=== PATIENT | male | born 1990 | race Caucasian/White ===

== ENCOUNTER 2018-10-20 13:57 | Emergency (ER) | payer BC ==
[2018-10-20 15:22] VITALS: BP 118/70
--- NOTE | 2018-10-20 16:15 | UC ---
Lower Extremity/Ankle HPI - HPI Summary HPI Summary: Patient is a 27 year old gentleman, who present today to the urgent care with left foot and ankle pain since last night. He reports that he slipped on ice and landed/rolled his left foot. He is able to bear weight but it's painful - History of Current Complaint Chief Complaint: UCLowerExtremity Stated Complaint: L FOOT INJURY Time Seen by Provider: 10/20/18 16:12 Hx Obtained From: Patient Pain Intensity: 6 - Allergies/Home Medications Allergies/Adverse Reactions: Allergies Allergy/AdvReac Type Severity Reaction Status Date / Time acetaminophen [From Percocet] Allergy See Comment Verified 10/20/18 15:22 oxycodone [From Percocet] Allergy See Comment Verified 10/20/18 15:22 Home Medications: Home Medications NK [No Home Medications Reported] 10/20/18 [History Confirmed 10/20/18] PMH/Surg Hx/FS Hx/Imm Hx - Additional Past Medical History Additional PMH: No significant past medical history Previously Healthy: Yes - Surgical History Surgical History: Yes Surgery Procedure, Year, and Place: orif of bilat lower jaw - Social History Alcohol Use: Occasionally Substance Use Type: None Smoking Status (MU): Never Smoked Tobacco Review of Systems All Other Systems Reviewed And Are Negative: Yes Constitutional: Positive: Negative Eyes: Positive: Negative ENT: Positive: Negative Respiratory: Positive: Negative Cardiovascular: Positive: Negative Gastrointestinal: Positive: Negative Genitourinary: Positive: Negative Motor: Positive: Negative Neurovascular: Positive: Negative Musculoskeletal: Positive: Arthralgia - Left ankle and foot, Edema - Left foot Neurological: Positive: Negative Psychological: Positive: Negative Is Patient Immunocompromised?: No Physical Exam - Summary Physical Exam Summary: Physical Exam: Const: Appears well. No signs of apparent distress present. Alert and oriented x 3. Musculo: Walks with an antalgic gait Head/Face: Atraumatic, normocephalic on inspection. Eyes: EOMI and PERRLA in both eyes. Conjunctivae clear. No discharge noted ENT: Hearing normal Respiratory: Respirations are unlabored. CVS: Regular rate and Rhythm, S1S2 normal , no murmurs identified. Extremities: Peripheral circulation is grossly normal. Pulses 2+ Abdomen : Soft non tender , nondistended , Bowel sounds present . No guarding , rebound tenderness or rigidity noted. Skin: No lesions or rash located on the upper extremities or on the lower extremities. Neuro: Cranial nerves II to XII intact, motor and sensory intact. DTR Intact bilaterally. Mood is normal. Affect is normal. Left Ankle/Feet examination: Left Ankle: Inspection/palpation: No bruising, swelling. There is tenderness to palpation at the ATFL. There is no significant tenderness at the malleoli. There is tenderness to palpation at the base of the fifth metatarsal. Ankle mortise appears intact. ROM: full AROM: Full dorsiflexion(20 deg), Full plantar flexion(50 deg) Strength: 5-/5 Special tests:Anterior drawer test is negative . Side to side test negative.Talar tilt test(inversion stress) and the eversion stress test negative. Negative Squeeze and External Rotation tests. Left Feet: Insp/Palp: Swelling and tenderness is noted at the mid foot area. There is tenderness to palpation at the Lisfranc joint. There is tenderness at the base of the fifth metatarsal. Strength: EHL 5/5 blaterally Skin: No scars, rashes, lesions or ecchymosis. 2+ posterior tibial and dorsalis pedis pulse bilaterally. Neuro: Sensation to light touch is intact in the lower extremities bilaterally. Coordination normal. Triage Information Reviewed: Yes Vital Signs: Initial Vital Signs Temp 98.3 F 10/20/18 15:16 Pulse 83 10/20/18 15:16 Resp 18 10/20/18 15:16 BP 118/70 10/20/18 15:16 Pulse Ox 99 10/20/18 15:16 Vital Signs Reviewed: Yes Diagnostics - Radiology No standard instances Radiology Interpretation Completed By: Radiologist - X-ray of the left ankle and left foot: Normal articular alignment and preserved joint spaces at the ankle and foot. No cortical disruption or suspicious trabecular irregularity to suggest fracture. Unremarkable soft tissue contours. IMPRESSION: #. Negative radiographic exam of the LEFT ankle and foot. Lower Extremity Course/Dx - Course Course Of Treatment: During the visit today, we obtained x-rays of the left ankle and foot which were negative for any fracture . We discussed the findings consistent with left lateral ankle and midfoot strain with possibility of a Lisfranc injury cannot be completely ruled out plan to keep him in the boot and follow up with orthopedics. - Differential Dx/Diagnosis Provider Diagnosis: Left ankle sprain, Sprain of foot, left, Lisfranc's sprain Discharge - Sign-Out/Discharge Documenting (check all that apply): Patient Departure All imaging exams completed and their final reports reviewed: Yes - Discharge Plan Condition: Stable Disposition: HOME Patient Education Materials: Ankle Sprain (ED), Foot Sprain (ED) Referrals: Mustapha Dickerson MD [Medical Doctor] - 1 Week Beatriz Sheikh PA [Primary Care Provider] - Additional Instructions: Start using the boot all the time . Ibuprofen and ice as needed for pain Gentle range of motion exercises as discussed Follow up with orthopedics within a week Return to Urgent care / ER if symptoms get worse. - Billing Disposition and Condition Condition: STABLE Disposition: Home
== END 2018-10-20 17:47 | disposition home or self-care (01) ==
LOC: UCCORT 13:57
DX: S93.402A Sprain of unspecified ligament of left ankle, initial encounter (principal); S93.602A Unspecified sprain of left foot, initial encounter; X50.1XXA Overexertion from prolonged static or awkward postures, initial encounter; Y92.9 Unspecified place or not applicable
CPT/HCPCS: 99202; G0463